=== PATIENT | male | born 1940 | race Two or more races ===

== ENCOUNTER 2024-01-25 09:41 | Outpatient (CLI) | payer OTHER | END 2024-01-25 09:52 | disposition home or self-care (01) | LOC: RAD 09:41 | PROVIDERS: ATTEND Otolaryngology Otolaryngology/Facial Plastic Surgery | DX: D37.032 Neoplasm of uncertain behavior of the submandibular salivary glands (principal); R13.10 Dysphagia, unspecified ==

== ENCOUNTER 2024-11-04 06:05 | Day surgery (SDC) | payer OTHER ==
[2024-10-27 13:14] LABS: URINE APPEARANCE Clear; URINE BILIRRUBIN Negative (NEGATIVE); URINE BLOOD Small; URINE COLOR Yellow; URINE KETONE Negative (NEGATIVE); URINE LEUKOCYTE Negative; URINE NITRATE Negative
[2024-10-27 13:19] LABS: URINE BACTERIA 13.4 uL (0.0-1933); URINE EPITHELIAL CELLS 4.4 uL (0.0-38.8); URINE RBC 12.2 uL (0.0-20.8)
[2024-10-27 13:28] VITALS: BP 150/73
[2024-10-27 13:34] LABS: INR 1.02; PARTIAL THROMBOPLASTIN TIME 22.5 SECONDS (22.0-34.0); PROTHROMBIN TIME 11.1 SECONDS (9.0-11.5)
[2024-10-27 13:34] LABS: URINE CAST 0.58 uL (0.0-1.40); URINE GLUCOSE >=1000 MG/DL (NEGATIVE); URINE PROTEIN 100 (NEGATIVE); URINE WBC 1.4 uL (0.0-23.2)
[~2024-11-04] VITALS: Ht 170.2 cm; Wt 73.9 kg
[~2024-11-04 06:05] MED LIST: HORIZANT300 MG PO; LIPITOR20 MG PO; PERCOCET 10-321 EACH PO; PLAVIX75 MG PO; RAYOS5 MG PO; TOPROL XL50 M1 PO; ZYTIGA250 MG PO
[2024-11-04] MEDS ORDERED: CEFTRIAXONE SODIUM 2,000 MG VIAL ONE (07:53)
[2024-11-04] MEDS ORDERED: METRONIDAZOLE/SODIUM CHLORIDE 500 MG/100 ML PIGGYBACK IV ONE (07:53)
[2024-11-04] MEDS ORDERED: BUPIVACAINE HCL/MPF 0.5% 30ML VIAL ONE (08:11)
[2024-11-04] MEDS ORDERED: LIDOCAINE HCL 1%/EPINEPHRINE 20ML VIAL IJ ONE (08:12)
[2024-11-04] MEDS ORDERED: HEMOSTATIC MATRIX 1 KIT KIT TOP ONE (08:12)
[2024-11-04] MEDS ORDERED: POVIDONE-IODINE 118 ML BOTT TOP ONE (08:12)
[2024-11-04] MEDS ORDERED: DIBUCAINE 30 GM TUBE ONE (08:12)
[2024-11-04] MEDS ORDERED: OXYCODONE HCL5 MG PO (10:15)
[2024-11-04] MEDS ORDERED: TAMSULOSIN HCL 0.4 MG CAP PO ONE ×2 (10:15→11:07)
== END 2024-11-04 14:00 | disposition home or self-care (01) ==
LOC: CIR.AMB 06:05
PROVIDERS: ATTEND Surgery
DX: K64.2 Third degree hemorrhoids (principal); K64.4 Residual hemorrhoidal skin tags; I10 Essential (primary) hypertension

== ENCOUNTER 2024-11-13 09:50 | Emergency (ER) | payer OTHER ==
[~2024-11-13] VITALS: Ht 167.6 cm; Wt 73.5 kg
[~2024-11-13 09:50] MED LIST changes: +OXYCODONE HCL5 MG PO
[2024-11-13] MEDS ORDERED: MEPERIDINE HCL/PF 25 MG/ML VIAL IM ONE (10:45)
[2024-11-13 11:55] LABS: HEMATOCRIT 35.2 % (39.0-48.0); HEMOGLOBIN 11.2 g/dL (13-16.00); MEAN CELL VOLUME 97.3 fL (80.0-100.00); MEAN CORPUSCULAR HEMOGLOBIN 31.1 pg (27.00-32.0); PLATELET COUNT 246 K/uL (150-450); RED BLOOD COUNT 3.62 M/uL (4.00-6.00); RED CELL DISTRIBUTION WIDTH 15.9 % (11.5-14.5)
[2024-11-13 11:58] LABS: INR 1.06; PARTIAL THROMBOPLASTIN TIME 24.3 SECONDS (22.0-34.0); PROTHROMBIN TIME 11.5 SECONDS (9.0-11.5)
[2024-11-13 12:09] LABS: BILIRUBIN TOTAL 0.77 mg/dL (0.3-1.2); CALCIUM 8.8 mg/dL (8.5-10.1); CREATININE SERUM 1.8 mg/dL (0.70-1.30); GFR 35.95; GLOBULINA 4.1 G/DL (2.4-3.5); POTASSIUM 3.77 mEq/L (3.5-5.1); TOTAL PROTEIN 7.1 gm/dL (6.4-8.2)
[2024-11-13] MEDS ORDERED: ANALPRAM HC 2.530 GM RECTAL (13:54)
== END 2024-11-13 14:12 | disposition home or self-care (01) ==
LOC: ER 09:52
PROVIDERS: General Practice
DX: K62.5 Hemorrhage of anus and rectum (principal); I10 Essential (primary) hypertension

== ENCOUNTER → 2025-02-28 10:57 | Outpatient (CLI) | payer OTHER ==
[~2025-02-28 10:57] MED LIST changes: +ANALPRAM HC 2.530 GM RECTAL
[2025-02-28 12:02] LABS: CREATININE SERUM 1.88 mg/dL (0.70-1.30)
== END | disposition home or self-care (01) ==
LOC: LAB 10:57
PROVIDERS: ATTEND Radiology Diagnostic Radiology
DX: R41.2 Retrograde amnesia (principal); F44.0 Dissociative amnesia

== ENCOUNTER → 2025-03-01 | Outpatient (CLI) | payer OTHER | END | disposition home or self-care (01) | LOC: TOM 07:55 | PROVIDERS: ATTEND Internal Medicine | DX: R41.2 Retrograde amnesia (principal); F44.0 Dissociative amnesia ==

== ENCOUNTER 2025-03-09 00:10 | Inpatient (IN) | payer OTHER ==
[~2025-03-09] VITALS: Ht 167.6 cm; Wt 69.9 kg
[2025-03-09] VITALS (10 sets, daily range): BP systolic 83–104; BP diastolic 52–63; O2SAT 95–100
[2025-03-09] MEDS ORDERED: 0.9 % SODIUM CHLORIDE 500 ML IV ONE (00:45)
[2025-03-09] MEDS ORDERED: HYOSCYAMINE SULFATE 0.125 MG TAB.SUBL SL ONE (00:45)
[2025-03-09] MEDS ORDERED: GRALISE600 MG (00:48)
[2025-03-09] MEDS ORDERED: PANTOPRAZOLE SO40 M2 (00:49)
[2025-03-09] MEDS ORDERED: ATORVASTATIN CA40 MG (00:49)
[2025-03-09] MEDS ORDERED: ISOSORBIDE DINI30 MG (00:49)
[2025-03-09] MEDS ORDERED: PLAVIX75 MG (00:49)
[2025-03-09] MEDS ORDERED: TOPROL XL50 M1 (00:49)
[2025-03-09] MEDS ORDERED: PREDNISONE 5MG (00:50)
[2025-03-09] MEDS ORDERED: ABIRATERONE AC250 MG (00:50)
[2025-03-09 00:52] LABS: ABG PH 7.406 (7.35-7.45); ABG PO2 77.3 mmHg (80-100); BASE EXCESS -4.9 mmol/l; BICARBONATE 18.4 mmol/l (23-25); SaO2 95.2 %; Tco2 19.4 mmol/l
[2025-03-09 00:54] LABS: allen test SATISFACTORY; mode NON REBREATHING MASK; o2 100 %; puncture site RADIAL RIGHT
[2025-03-09] MEDS ORDERED: HYOSCYAMINE SULFATE 0.125 MG TAB.SUBL ONE (00:56)
[2025-03-09 01:35] LABS: INR 1.15; PARTIAL THROMBOPLASTIN TIME 25.5 SECONDS (22.0-34.0); PROTHROMBIN TIME 12.4 SECONDS (9.0-11.5)
[2025-03-09 01:41] LABS: BASO % 0.2 % (0.1-1.2); EOS # 0.01 (0.04-0.54); EOS % 0.1 % (0.7-7.0); HEMATOCRIT 39.8 % (40.1-51.0); HEMOGLOBIN 12.6 g/dL (13.7-17.5); LYMPH # 2.13 (1.18-3.74); LYMPH % 12.6 % (19.3-53.1); MONO # 1.76 (0.24-0.82); MONO % 10.4 % (4.7-12.5); NEUT # 12.82 (1.56-6.13); PLATELET COUNT 168 K/uL (163-369); RED CELL DISTRIBUTION WIDTH 16.7 % (11.6-14.4)
[2025-03-09 01:45] LABS: ALBUMIN 3.2 gm/dL (3.4-5.0); BILIRUBIN TOTAL 1.32 mg/dL (0.3-1.2); CREATININE SERUM 2.58 mg/dL (0.70-1.30); GFR 23.73; GLOBULINA 3.9 G/DL (2.4-3.5); TOTAL PROTEIN 7.1 gm/dL (6.4-8.2)
[2025-03-09 02:00] LABS: POTASSIUM 2.68 mEq/L (3.5-5.1)
[2025-03-09] MEDS ORDERED: POTASSIUM CHLORIDE IN WATER 100 ML IV ONE (02:30)
[2025-03-09] MEDS ORDERED: CEFTRIAXONE SODIUM 1,000 MG VIAL IV STA (02:41)
[2025-03-09] MEDS ORDERED: CEFTRIAXONE SODIUM 1,000 MG VIAL ONE (03:28)
[2025-03-09] MEDS ORDERED: NOREPINEPHRINE BITARTRATE 1 MG/ML AMPUL IV ONE ×3 (04:28→09:25)
[2025-03-09] MEDS ORDERED: NOREPINEPHRINE BITARTRATE 4 MG in DEXTROSE 5 % IN WATER 250 ML IV SCH (04:30)
[2025-03-09] MEDS ORDERED: HYDROCORTISONE SODIUM SUCC/PF 250 MG VIAL ONE (07:07)
[2025-03-09] MEDS ORDERED: HYDROCORTISONE SODIUM SUCC/PF 100 MG VIAL ONE (07:07)
[2025-03-09] MEDS ORDERED: NOREPINEPHRINE BITARTRATE IV SCH (08:15)
[2025-03-09] MEDS ORDERED: DEXTROSE 5% IV SCH (08:15)
[2025-03-09] MEDS ORDERED: RINGERS SOLUTION,LACTATED 1,000 ML IV SCH (08:15)
[2025-03-09] MEDS ORDERED: WATER IV SCH (08:15)
[2025-03-09] MEDS ORDERED: HYDROCORTISONE SODIUM SUCC/PF 100 MG VIAL IV SCH (08:20)
[2025-03-09 08:50] LABS: ABG PH 7.346 (7.35-7.45); ABG PO2 186.9 mmHg (80-100); ABG pCO2 33.9 mmHg (35-45); SaO2 99.5 %
[2025-03-09 08:51] LABS: BASE EXCESS -6.5 mmol/l; BICARBONATE 18.1 mmol/l (23-25); Tco2 19.2 mmol/l; allen test SATISFACTORY; mode NON REBREATHING MASK; o2 100 %; puncture site RADIAL RIGHT
[2025-03-09] MEDS ORDERED: METOPROLOL SUCCINATE 50 MG TAB.SR.24H PO SCH ×2 (09:00→10:00)
[2025-03-09] MEDS ORDERED: LINEZOLID IN DEXTROSE 5% 300 ML IV SCH (09:00)
[2025-03-09] MEDS ORDERED: ATORVASTATIN CALCIUM 20 MG TABLET PO SCH (09:00)
[2025-03-09] MEDS ORDERED: ENOXAPARIN SODIUM 40 MG/0.4 ML SYRINGE SUBCUTANEO SCH (09:00)
[2025-03-09] MEDS ORDERED: MEROPENEM 1,000 MG VIAL IV SCH (09:00)
[2025-03-09] MEDS ORDERED: METOPROLOL SUCCINATE 25 MG TAB.SR.24H PO SCH (09:00)
[2025-03-09] MEDS ORDERED: PANTOPRAZOLE SODIUM 40 MG/VIAL VIAL IV PUSH SCH (09:00)
[2025-03-09] MEDS ORDERED: CLOPIDOGREL BISULFATE 75 MG TABLET PO SCH (09:00)
[2025-03-09] MEDS ORDERED: HYDROCORTISONE SODIUM SUCC/PF 250 MG VIAL IV ONE (09:15)
[2025-03-09] MEDS ORDERED: ENOXAPARIN SODIUM 60 MG/0.6 ML SYRINGE SUBCUTANEO ONE ×2 (09:22→21:10)
[2025-03-09] MEDS ORDERED: ATORVASTATIN CALCIUM 40 MG TABLET PO SCH (10:00)
[2025-03-09] MEDS ORDERED: ENOXAPARIN SODIUM 60 MG/0.6 ML SYRINGE SUBCUTANEO SCH (10:00)
[2025-03-09] MEDS ORDERED: MEROPENEM 500 MG/VIAL VIAL IV SCH (10:00)
[2025-03-09 10:30] LABS: PH,URINE 5.5 (5.0-8.0); URINE APPEARANCE Cloudy; URINE BILIRRUBIN Negative (NEGATIVE); URINE BLOOD Large; URINE COLOR Yellow; URINE KETONE 15 (NEGATIVE); URINE LEUKOCYTE Negative; URINE NITRATE Negative; URINE UROBILINOGEN 0.2 E.U./dl
[2025-03-09] MEDS ORDERED: LIDOCAINE HCL 2% JELLY 6 ML SYRINGE MM ONE (10:32)
[2025-03-09 10:34] LABS: URINE BACTERIA 59.9 uL (0.0-1933); URINE CAST 3.82 uL (0.0-1.40); URINE EPITHELIAL CELLS 26.7 uL (0.0-38.8); URINE RBC 26.8 uL (0.0-20.8)
[2025-03-09 11:23] LABS: URINE GLUCOSE 500 MG/DL (NEGATIVE); URINE PROTEIN 100 (NEGATIVE)
[2025-03-09 11:24] LABS: URINE CRYSTALS FEW /HPF
[2025-03-09 11:25] LABS: URINE MUCUS SCANT
[2025-03-09] MEDS ORDERED: ONDANSETRON HCL 2 MG/ML VIAL IV SCH (12:00)
[2025-03-09 22:24] LABS: COVID-19 AG NEGATIVE (NEGATIVE)
[2025-03-09 22:31] LABS: INFLUENZA A AG NEGATIVE (NEGATIVE); INFLUENZA B AG NEGATIVE (NEGATIVE)
[2025-03-09] MEDS ORDERED: ONDANSETRON HCL 2 MG/ML VIAL ONE (23:19)
[2025-03-10] VITALS (20 sets, daily range): BP systolic 82–116; BP diastolic 53–68; O2SAT 92–100
[2025-03-10] MEDS ORDERED: NOREPINEPHRINE BITARTRATE 1 MG/ML AMPUL IV ONE (01:36)
[2025-03-10] MEDS ORDERED: ONDANSETRON HCL 2 MG/ML VIAL ONE ×2 (06:43→12:57)
[2025-03-10 07:06] LABS: BASO % 0.5 % (0.1-1.2); HEMATOCRIT 31.9 % (40.1-51.0); HEMOGLOBIN 10.3 g/dL (13.7-17.5); LYMPH # 0.59 (1.18-3.74); LYMPH % 2.1 % (19.3-53.1); MEAN CORPUSCULAR HEMOGLOBIN 30.2 pg (25.6-32.2); MONO # 1.98 (0.24-0.82); MONO % 7.2 % (4.7-12.5); NEUT # 21.63 (1.56-6.13); NEUT % 78.6 % (34.0-71.1); PLATELET COUNT 145 K/uL (163-369); RED BLOOD COUNT 3.41 M/uL (4.63-6.08); RED CELL DISTRIBUTION WIDTH 17.1 % (11.6-14.4)
[2025-03-10 07:15] LABS: ALBUMIN 2.4 gm/dL (3.4-5.0); BILIRUBIN TOTAL 0.98 mg/dL (0.3-1.2); C-REACTIVE PROTEIN 27.5 MG/DL (0.00-0.29); CALCIUM 8.3 mg/dL (8.5-10.1); CHOL HDL RATIO 1.7 (0-5.0); CREATININE SERUM 3.61 mg/dL (0.70-1.30); GFR 16.1; GLOBULINA 3.6 G/DL (2.4-3.5); MAGNESIUM 1.6 mg/dL (1.8-2.4); POTASSIUM 3.82 mEq/L (3.5-5.1); PROSTATIC SPECIFIC ANTIGEN 1.76 NG/ML (0.010-4.00); T4 FREE 1.33 NG/ML (0.76-1.46); TSH 1.23 uIU/mL (0.358-3.74)
[2025-03-10 07:20] LABS: PH,URINE 5.5 (5.0-8.0); URINE APPEARANCE Turbid; URINE BILIRRUBIN Negative (NEGATIVE); URINE BLOOD Large; URINE COLOR Yellow; URINE KETONE Negative (NEGATIVE); URINE LEUKOCYTE Negative; URINE NITRATE Negative; URINE UROBILINOGEN 0.2 E.U./dl
[2025-03-10 07:24] LABS: URINE BACTERIA 50.1 uL (0.0-1933); URINE CAST 15.46 uL (0.0-1.40); URINE EPITHELIAL CELLS 134.4 uL (0.0-38.8); URINE RBC 12.9 uL (0.0-20.8)
[2025-03-10 07:27] LABS: ERYTHROCYTE SEDIMENTATION RATE 67 mm/hr (0-20)
[2025-03-10] MEDS ORDERED: MAGNESIUM SULFATE IN WATER 50 ML IV SCH (07:43)
[2025-03-10] MEDS ORDERED: VASOPRESSIN 20 UNITS in 0.9 % SODIUM CHLORIDE 250 ML IV SCH (07:45)
[2025-03-10 07:49] LABS: URINE CRYSTALS FEW /HPF; URINE GLUCOSE 500 MG/DL (NEGATIVE); URINE MUCUS SCANT; URINE PROTEIN 100 (NEGATIVE)
[2025-03-10] MEDS ORDERED: HYDROCORTISONE SODIUM SUCC/PF 50 MG/ML ML IV SCH ×2 (08:00)
[2025-03-10] MEDS ORDERED: ENOXAPARIN SODIUM 40 MG/0.4 ML SYRINGE SUBCUTANEO SCH (09:00)
[2025-03-10] MEDS ORDERED: LIDOCAINE HCL VISCOUS 20MG/ML BLIST 15ML MM ONE (11:44)
[2025-03-10 12:00] LABS: ABG PH 7.391 (7.35-7.45)
[2025-03-10 12:01] LABS: ABG PO2 238.5 mmHg (80-100); ABG pCO2 31.7 mmHg (35-45); BASE EXCESS -4.9 mmol/l; BICARBONATE 18.8 mmol/l (23-25); SaO2 99.8 %; Tco2 19.8 mmol/l; allen test NO SATISFACTORY; mode NON REBREATHING MASK; o2 100 %; puncture site RADIAL RIGHT
[2025-03-10] MEDS ORDERED: AA 4.25%/CAL/LYTES/DEXT 5% 1,000 ML PERIFERAL SCH (17:00)
[2025-03-11 00:35] VITALS: BP 105/58; O2SAT 99
[2025-03-11 07:33] LABS: BASO % 0.2 % (0.1-1.2); HEMATOCRIT 27.5 % (40.1-51.0); LYMPH # 0.57 (1.18-3.74); LYMPH % 2.9 % (19.3-53.1); MEAN CORPUSCULAR HEMOGLOBIN 30.1 pg (25.6-32.2); MONO # 0.62 (0.24-0.82); MONO % 3.1 % (4.7-12.5); NEUT # 18.56 (1.56-6.13); NEUT % 93.5 % (34.0-71.1); RED BLOOD COUNT 2.96 M/uL (4.63-6.08)
[2025-03-11 07:38] LABS: HEMOGLOBIN 8.9 g/dL (13.7-17.5); PLATELET COUNT 99 K/uL (163-369)
[2025-03-11 07:47] LABS: ALBUMIN 2.2 gm/dL (3.4-5.0); CALCIUM 8.1 mg/dL (8.5-10.1); GFR 13.71; PHOSPHOROUS 5.4 mg/dL (2.5-4.9); POTASSIUM 4.26 mEq/L (3.5-5.1)
[2025-03-11 07:58] VITALS: BP 104/60; O2SAT 100
[2025-03-11 08:09] LABS: CREATININE SERUM 4.15 mg/dL (0.70-1.30)
[2025-03-11] MEDS ORDERED: CHLORHEXIDINE GLUCONATE 120 ML BOTTLE TOP ONE (08:12)
[2025-03-11] MEDS ORDERED: HYDROCORTISONE SODIUM SUCC/PF 100 MG VIAL ONE ×2 (10:49→18:45)
[2025-03-11] MEDS ORDERED: DIPHENHYDRAMINE HCL 50 MG/ML VIAL 1ML ONE (11:11)
[2025-03-11] MEDS ORDERED: HALOPERIDOL LACTATE 5 MG/ML AMPUL ONE (11:11)
[2025-03-11 15:25] VITALS: BP 114/64; O2SAT 100
[2025-03-12] VITALS (13 sets, daily range): BP systolic 118–142; BP diastolic 65–78; O2SAT 92–100
[2025-03-12 08:37] LABS: BASO % 0.1 % (0.1-1.2); LYMPH # 0.63 (1.18-3.74); LYMPH % 4.2 % (19.3-53.1); MONO # 0.55 (0.24-0.82); MONO % 3.7 % (4.7-12.5); NEUT % 91.5 % (34.0-71.1)
[2025-03-12 08:55] LABS: ALBUMIN 2.1 gm/dL (3.4-5.0); CALCIUM 7.7 mg/dL (8.5-10.1); GFR 12.42; MAGNESIUM 3.1 mg/dL (1.8-2.4); PHOSPHOROUS 6.5 mg/dL (2.5-4.9); POTASSIUM 4.85 mEq/L (3.5-5.1)
[2025-03-12 09:09] LABS: HEMATOCRIT 26.5 % (40.1-51.0); HEMOGLOBIN 8.7 g/dL (13.7-17.5); PLATELET COUNT 84 K/uL (163-369)
[2025-03-12 09:47] LABS: CREATININE SERUM 4.52 mg/dL (0.70-1.30)
[2025-03-12] MEDS ORDERED: INSULIN NPH HUMAN ISOPHANE 1,000 UNITS/10 ML UNITS SUBCUTANEO STA (11:43)
[2025-03-12] MEDS ORDERED: INSULIN LISPRO 1,000 UNIT/10 ML UNITS SUBCUTANEO PRN (11:45)
[2025-03-12] MEDS ORDERED: DEXTROSE 50 % IN WATER 0.5 G/ML VIAL IV PRN (11:45)
[2025-03-12 12:21] LABS: BILIRUBIN TOTAL 0.67 mg/dL (0.3-1.2); BILIRUBIN,CONJUGATED 0.28 mg/dL (0.0-0.2); BILIRUBIN,UNCONJUGATED 0.39 mg/dL (0.0-0.6)
[2025-03-12 12:53] LABS: FERRITIN 1383.9 NG/ML (26-388)
[2025-03-13] VITALS (9 sets, daily range): BP systolic 125–162; BP diastolic 66–82; O2SAT 97–99
[2025-03-13] MEDS ORDERED: SODIUM CHLORIDE 0.45 % 1,000 ML IV SCH (07:45)
[2025-03-13] MEDS ORDERED: SOD FERRIC GLUC COMPLX/SUCROSE 62.5 MG in 0.9 % SODIUM CHLORIDE 50 ML IV SCH (09:00)
[2025-03-13] MEDS ORDERED: ENOXAPARIN SODIUM 30 MG/0.3 ML SYRINGE SUBCUTANEO SCH (09:00)
[2025-03-13] MEDS ORDERED: EPOETIN ALFA-EPBX 10,000 UNIT/ML VIAL (Retacrit) SUBCUTANEO SCH (09:00)
[2025-03-13 10:48] LABS: FOLIC ACID 4.14 ng/ml (4.78-20)
[2025-03-13 11:59] LABS: BASO % 0.3 % (0.1-1.2); HEMATOCRIT 31.5 % (40.1-51.0); HEMOGLOBIN 10.5 g/dL (13.7-17.5); LYMPH # 0.47 (1.18-3.74); LYMPH % 4.8 % (19.3-53.1); MEAN CORPUSCULAR HEMOGLOBIN 30.1 pg (25.6-32.2); MONO # 0.61 (0.24-0.82); MONO % 6.2 % (4.7-12.5); NEUT # 8.28 (1.56-6.13); NEUT % 83.8 % (34.0-71.1); RED BLOOD COUNT 3.49 M/uL (4.63-6.08); RED CELL DISTRIBUTION WIDTH 16.3 % (11.6-14.4)
[2025-03-13 12:01] LABS: PLATELET COUNT 65 K/uL (163-369)
[2025-03-13] MEDS ORDERED: HYDROCORTISONE SODIUM SUCC/PF 100 MG VIAL ONE (12:18)
[2025-03-13 12:30] LABS: INR 0.98; PROTHROMBIN TIME 10.7 SECONDS (9.0-11.5)
[2025-03-13 12:46] LABS: ALBUMIN 2.2 gm/dL (3.4-5.0); BILIRUBIN TOTAL 0.76 mg/dL (0.3-1.2); BILIRUBIN,CONJUGATED 0.3 mg/dL (0.0-0.2); BILIRUBIN,UNCONJUGATED 0.46 mg/dL (0.0-0.6); CALCIUM 7.7 mg/dL (8.5-10.1); CHOL HDL RATIO 3.1 (0-5.0); GFR 11.35; GLOBULINA 3.6 G/DL (2.4-3.5); POTASSIUM 4.37 mEq/L (3.5-5.1); TOTAL PROTEIN 5.8 gm/dL (6.4-8.2)
[2025-03-13 12:55] LABS: CREATININE SERUM 4.89 mg/dL (0.70-1.30)
[2025-03-13 13:41] LABS: CALCIUM 7.6 mg/dL (8.5-10.1); GFR 11.32; POTASSIUM 4.74 mEq/L (3.5-5.1)
[2025-03-13 13:50] LABS: CREATININE SERUM 4.9 mg/dL (0.70-1.30)
[2025-03-13] MEDS ORDERED: VANCOMYCIN HCL 1,000 MG VIAL IV NR (14:00)
[2025-03-13 14:47] LABS: URINE APPEARANCE Clear; URINE BILIRRUBIN Negative (NEGATIVE); URINE BLOOD Large; URINE COLOR Yellow; URINE KETONE Negative (NEGATIVE); URINE LEUKOCYTE Negative; URINE NITRATE Negative; URINE PROTEIN 30 (NEGATIVE); URINE UROBILINOGEN 0.2 E.U./dl
[2025-03-13 14:50] LABS: URINE BACTERIA 8.5 uL (0.0-1933); URINE RBC 41.6 uL (0.0-20.8); URINE WBC 3.7 uL (0.0-23.2)
[2025-03-13 14:51] LABS: URINE CAST 0.88 uL (0.0-1.40); URINE GLUCOSE 500 MG/DL (NEGATIVE)
[2025-03-14 03:00] VITALS: BP 147/81; O2SAT 98
[2025-03-14 06:33] LABS: BASO % 0.4 % (0.1-1.2); HEMATOCRIT 31.2 % (40.1-51.0); HEMOGLOBIN 10.5 g/dL (13.7-17.5); LYMPH # 0.54 (1.18-3.74); LYMPH % 6.7 % (19.3-53.1); MEAN CORPUSCULAR HEMOGLOBIN 30.4 pg (25.6-32.2); MONO # 0.64 (0.24-0.82); MONO % 7.9 % (4.7-12.5); NEUT # 6.56 (1.56-6.13); NEUT % 80.8 % (34.0-71.1); RED CELL DISTRIBUTION WIDTH 16.8 % (11.6-14.4)
[2025-03-14 06:57] LABS: ALBUMIN 2.2 gm/dL (3.4-5.0); BILIRUBIN TOTAL 0.82 mg/dL (0.3-1.2); CALCIUM 7.3 mg/dL (8.5-10.1); GLOBULINA 3.6 G/DL (2.4-3.5); MAGNESIUM 3.1 mg/dL (1.8-2.4); PHOSPHOROUS 6.4 mg/dL (2.5-4.9); POTASSIUM 3.98 mEq/L (3.5-5.1); TOTAL PROTEIN 5.8 gm/dL (6.4-8.2)
[2025-03-14 07:11] LABS: C-REACTIVE PROTEIN 10.1 MG/DL (0.00-0.29); GFR 11.65
[2025-03-14 07:13] LABS: CREATININE SERUM 4.78 mg/dL (0.70-1.30)
[2025-03-14 07:49] LABS: PLATELET COUNT 61 K/uL (163-369)
[2025-03-14 08:08] VITALS: BP 146/77; O2SAT 100
[2025-03-14] MEDS ORDERED: INSULIN NPH HUMAN ISOPHANE 1,000 UNITS/10 ML UNITS SUBCUTANEO SCH ×2 (09:00→21:00)
[2025-03-14 09:26] LABS: RED BLOOD COUNT 3.45 M/uL (4.63-6.08)
[2025-03-14] MEDS ORDERED: INSULIN NPH HUMAN ISOPHANE 1,000 UNITS/10 ML UNITS SUBCUTANEO ONE (11:10)
[2025-03-14 11:21] VITALS: BP 163/84; O2SAT 94
[2025-03-14] MEDS ORDERED: PREDNISONE 10 MG TABLET PO SCH (17:00)
[2025-03-14 17:04] VITALS: BP 147/77; O2SAT 95
[2025-03-14] MEDS ORDERED: METOPROLOL SUCCINATE 25 MG TAB.SR.24H PO SCH (18:04)
[2025-03-14] MEDS ORDERED: FOLIC ACID 5 MG/ML VIAL IV ONE ×2 (18:45→19:00)
[2025-03-14] MEDS ORDERED: SODIUM CHLORIDE 0.45 % 1,000 ML IV SCH (19:00)
[2025-03-14 23:00] VITALS: BP 138/71; O2SAT 96
[2025-03-15] VITALS (7 sets, daily range): BP systolic 141–155; BP diastolic 65–79; O2SAT 97–99
[2025-03-15 06:07] LABS: ALBUMIN 2.3 gm/dL (3.4-5.0); BILIRUBIN TOTAL 1.07 mg/dL (0.3-1.2); GFR 11.37; GLOBULINA 3.2 G/DL (2.4-3.5); MAGNESIUM 2.7 mg/dL (1.8-2.4); PHOSPHOROUS 6.1 mg/dL (2.5-4.9); POTASSIUM 3.77 mEq/L (3.5-5.1); TOTAL PROTEIN 5.5 gm/dL (6.4-8.2)
[2025-03-15 06:25] LABS: CREATININE SERUM 4.88 mg/dL (0.70-1.30)
[2025-03-15 06:32] LABS: BASO % 0.2 % (0.1-1.2); HEMATOCRIT 31.4 % (40.1-51.0); HEMOGLOBIN 10.5 g/dL (13.7-17.5); LYMPH # 0.92 (1.18-3.74); LYMPH % 9.9 % (19.3-53.1); MONO # 0.82 (0.24-0.82); MONO % 8.8 % (4.7-12.5); NEUT # 7.11 (1.56-6.13); NEUT % 76.4 % (34.0-71.1); RED CELL DISTRIBUTION WIDTH 16.6 % (11.6-14.4)
[2025-03-15 06:39] LABS: FIBRINOGEN 295 mg/dL (187.0-446.0)
[2025-03-15 07:02] LABS: D DIMER > 35.20 MG/L
[2025-03-15 07:47] LABS: PLATELET COUNT 60 K/uL (163-369)
[2025-03-15] MEDS ORDERED: INSULIN LISPRO 1,000 UNIT/10 ML UNITS SUBCUTANEO ONE (12:56)
[2025-03-15] MEDS ORDERED: RINGERS SOLUTION,LACTATED 250 ML IV SCH (14:45)
[2025-03-15] MEDS ORDERED: Calcium Acetate 667 MG CAP PO SCH (17:00)
[2025-03-16] VITALS (9 sets, daily range): BP systolic 130–148; BP diastolic 67–82; O2SAT 90–99
[2025-03-16 06:24] LABS: BASO % 0.2 % (0.1-1.2); EOS # 0.01 (0.04-0.54); EOS % 0.1 % (0.7-7.0); HEMATOCRIT 32.4 % (40.1-51.0); HEMOGLOBIN 10.5 g/dL (13.7-17.5); LYMPH # 0.96 (1.18-3.74); MEAN CORPUSCULAR HEMOGLOBIN 29.7 pg (25.6-32.2); MONO # 0.94 (0.24-0.82); MONO % 8.8 % (4.7-12.5); NEUT # 8.33 (1.56-6.13); NEUT % 77.9 % (34.0-71.1); RED BLOOD COUNT 3.54 M/uL (4.63-6.08); RED CELL DISTRIBUTION WIDTH 16.5 % (11.6-14.4)
[2025-03-16 07:03] LABS: ALBUMIN 2.4 gm/dL (3.4-5.0); BILIRUBIN TOTAL 1.09 mg/dL (0.3-1.2); CALCIUM 6.8 mg/dL (8.5-10.1); GFR 12.42; GLOBULINA 3.2 G/DL (2.4-3.5); PHOSPHOROUS 5.7 mg/dL (2.5-4.9); POTASSIUM 3.43 mEq/L (3.5-5.1); TOTAL PROTEIN 5.6 gm/dL (6.4-8.2)
[2025-03-16 07:47] LABS: PLATELET COUNT 58 K/uL (163-369)
[2025-03-16 07:52] LABS: CREATININE SERUM 4.52 mg/dL (0.70-1.30)
[2025-03-16] MEDS ORDERED: MORPHINE SULFATE 2 MG/ML CARTRIDGE IV PRN (11:15)
[2025-03-16] MEDS ORDERED: POTASSIUM CHLORIDE IN WATER 100 ML IV SCH (12:00)
[2025-03-17 01:02] VITALS: BP 149/81; O2SAT 95
[2025-03-17 01:41] VITALS: O2SAT 90
[2025-03-17 06:09] VITALS: O2SAT 98
[2025-03-17 09:51] VITALS: BP 129/73; O2SAT 96
[2025-03-17] MEDS ORDERED: fentaNYL 12 MCG PATCH.TD72 TD PRN (14:30)
[2025-03-17] MEDS ORDERED: LIPITOR40 M1 PO (14:37)
[2025-03-17] MEDS ORDERED: TOPROL XL25 M1 PO (14:37)
[2025-03-17] MEDS ORDERED: PHOSLO667 M1 PO (14:38)
[2025-03-17] MEDS ORDERED: FUROSEMIDE20 MG PO (14:42)
[2025-03-17] MEDS ORDERED: FENTANYL1 EAC7 TD (14:42)
[2025-03-17] MEDS ORDERED: COLACE100 MG PO (14:42)
[2025-03-17] MEDS ORDERED: PREDNISONE 5MG PO (14:43)
[2025-03-17] MEDS ORDERED: INTEGRA PLUS C1 EACH PO (14:46)
[2025-03-17 16:36] VITALS: O2SAT 99
[2025-03-17] MEDS ORDERED: DOCUSATE SODIUM 100MG CAP PO SCH (17:00)
[2025-03-17] MEDS ORDERED: FUROsemide 20 MG TABLET PO SCH (17:00)
[2025-03-17] MEDS ORDERED: PREDNISONE 5 MG TABLET PO SCH (17:00)
== END 2025-03-17 16:53 | disposition home or self-care (01) | DRG 871 ==
LOC: ER → EDBD 00:50 → ER 00:50 → SEC-K 08:45 → ICU-2 08:45 → MEDJ 03-13 11:35 → SEC-K 03-13 17:45 → MEDJ 03-15 13:19
PROVIDERS: General Practice; Internal Medicine; Internal Medicine Infectious Disease; Surgery; ADMIT Internal Medicine; ATTEND Internal Medicine
PROC: BW21ZZZ Computerized Tomography (CT Scan) of Abdomen and Pelvis (ICD-10-PCS; 2025-03-09)
PROC: B246ZZZ Ultrasonography of Right and Left Heart (ICD-10-PCS; 2025-03-09)
PROC: BB24ZZZ Computerized Tomography (CT Scan) of Bilateral Lungs (ICD-10-PCS; 2025-03-09)
PROC: 4A12X4Z Monitoring of Cardiac Electrical Activity, External Approach (ICD-10-PCS; 2025-03-09)
PROC: 5A0945A Assistance with Respiratory Ventilation, 24-96 Consecutive Hours, High Flow/Velocity Cannula (ICD-10-PCS; principal; 2025-03-10)
PROC: B548ZZA Ultrasonography of Superior Vena Cava, Guidance (ICD-10-PCS; 2025-03-11)
PROC: 06HM33Z Insertion of Infusion Device into Right Femoral Vein, Percutaneous Approach (ICD-10-PCS; 2025-03-11)
PROC: 02HV33Z Insertion of Infusion Device into Superior Vena Cava, Percutaneous Approach (ICD-10-PCS; 2025-03-11)
PROC: B54DZZZ Ultrasonography of Bilateral Lower Extremity Veins (ICD-10-PCS; 2025-03-12)
PROC: 30233N1 Transfusion of Nonautologous Red Blood Cells into Peripheral Vein, Percutaneous Approach (ICD-10-PCS; 2025-03-13)
DX: A41.9 Sepsis, unspecified organism (principal); I21.A1 Myocardial infarction type 2; J69.0 Pneumonitis due to inhalation of food and vomit; R65.21 Severe sepsis with septic shock; R57.8 Other shock; T80.211A Bloodstream infection due to central venous catheter, initial encounter; L98.498 Non-pressure chronic ulcer of skin of other sites with other specified severity; N39.0 Urinary tract infection, site not specified; C79.51 Secondary malignant neoplasm of bone; C79.82 Secondary malignant neoplasm of genital organs; E27.49 Other adrenocortical insufficiency; N17.9 Acute kidney failure, unspecified; I13.0 Hypertensive heart and chronic kidney disease with heart failure and stage 1 through stage 4 chronic kidney disease, or unspecified chronic kidney disease; E11.22 Type 2 diabetes mellitus with diabetic chronic kidney disease; N18.9 Chronic kidney disease, unspecified; K62.7 Radiation proctitis; D50.8 Other iron deficiency anemias; D69.6 Thrombocytopenia, unspecified; D64.89 Other specified anemias; R06.03 Acute respiratory distress; Z66 Do not resuscitate; Z95.1 Presence of aortocoronary bypass graft; Z92.21 Personal history of antineoplastic chemotherapy; Z79.52 Long term (current) use of systemic steroids; B95.2 Enterococcus as the cause of diseases classified elsewhere